=== PATIENT | male | born 1985 | race Two or more races ===

== ENCOUNTER 2021-06-20 11:14 | Emergency (ER) | payer MEDICAID ==
[~2021-06-20] VITALS: Ht 182.9 cm; Wt 105.0 kg
[2021-06-20] MEDS ORDERED: IBUPROFEN 600MG TABLET PO ONE (12:00)
[2021-06-20] MEDS ORDERED: IBUP-2028 MT (13:13)
[2021-06-20 13:42] VITALS: BP 127/81
== END 2021-06-20 13:42 | disposition home or self-care (01) ==
LOC: ER 11:53
DX: M25.512 Pain in left shoulder (principal); M54.9 Dorsalgia, unspecified; R94.31 Abnormal electrocardiogram [ECG] [EKG]; V43.52XA Car driver injured in collision with other type car in traffic accident, initial encounter; Y93.9 Activity, unspecified; Y92.410 Unspecified street and highway as the place of occurrence of the external cause
CPT/HCPCS: 70450; 72100; 73030; 93005; 99285; Z7610